=== PATIENT | male | born 1960 | race African-American/Black ===

== ENCOUNTER 2016-12-06 19:07 | Emergency (ER) | payer OTHER ==
[~2016-12-06] VITALS: Ht 185.4 cm; Wt 108.9 kg
[~2016-12-06 19:07] MED LIST: ACETAMINOPHEN-1 EAC1 ORAL
[2016-12-06] MEDS ORDERED: UNOBMED (19:31)
[2016-12-06 19:40] VITALS: BP 136/87
[2016-12-06] MEDS ORDERED: Tetanus/Diptheria/Pertussis Vaccine 0.5ml Syr IM ONE (19:45)
--- NOTE | 2016-12-06 19:58 | Emergency Room Report ---
History of Present Illness General Chief Complaint: Laceration Source: Patient Present Illness HPI 56-year-old male presents emergency department for being scratched by patient on the right forearm at work earlier today. Patient denies erythema denies pain denies bleeding at this time. Patient states he does not know when his last tetanus vaccination was. He cleaned the wounds prior to arrival. Patient states that injury occurred while working. He denies taking blood thinning medications. Denies numbness tingling or loss of sensation or gross motor movements of the extremities, incontinence of bowel or bladder. Denies CP, Palpitations, LOC, AMS, dizziness, Changes in Vision, Sensation, paresthesias, or a sudden severe headache. Allergies: Uncoded Allergies: IBUPROFEN (Allergy, Unknown, 08/24/15) Patient History Past Medical History: see triage record Past Surgical History: none Reviewed Nursing Documentation: PMH: Agreed, PSxH: Agreed Nursing Documentation-PMH Hx Hypertension: Yes Review of Systems All Other Systems: negative except mentioned in HPI Physical Exam Vital Signs Date Time Temp Pulse Resp B/P Pulse Ox O2 Delivery O2 Flow Rate FiO2 12/06/16 19:27 98.4 65 14 136/87 96 Room Air Sp02 EP Interpretation: reviewed, normal General Appearance: no apparent distress, alert, GCS 15, non-toxic Head: normocephalic, atraumatic Eyes: bilateral eye PERRL, bilateral eye normal inspection ENT: hearing grossly normal, normal pharynx, no angioedema, normal voice Neck: full range of motion, supple/symm/no masses Respiratory: lungs clear, normal breath sounds, speaking full sentences Cardiovascular #1: regular rate, rhythm Musculoskeletal: back normal, gait/station normal, normal range of motion, non- tender Neurologic: alert, oriented x3, responsive, motor strength/tone normal, sensory intact, speech normal Psychiatric: judgement/insight normal, memory normal, mood/affect normal Skin: normal color, no rash, warm/dry, well hydrated, abrasions - 3 separate superficial abrasions/lacerations linear less than 0.3 cm each , no surrounding erythema. Lymphatic: no adenopathy Medical Decision Making PA Attestation Dr. Tovar is my supervising Physician whom patient management has been discussed with. Diagnostic Impression: Primary Impression: Laceration ER Course 56-year-old male presents emergency department for being scratched by patient on the right forearm at work earlier today. Patient denies erythema denies pain denies bleeding at this time. Patient states he does not know when his last tetanus vaccination was. He cleaned the wounds prior to arrival. Patient states that injury occurred while working. He denies taking blood thinning medications. Denies numbness tingling or loss of sensation or gross motor movements of the extremities, incontinence of bowel or bladder. Denies CP, Palpitations, LOC, AMS, dizziness, Changes in Vision, Sensation, paresthesias, or a sudden severe headache. Ddx considered but are not limited to laceration, tendon injury, cellulitis, amputation Vital signs: are WNL, pt. is afebrile H&PE are most consistent with: 3 separate superficial abrasions/lacerations linear less than 0.3 cm each , no surrounding erythema. ORDERS: none required at this time, the diagnosis is clinical ED INTERVENTIONS: -Tetanus vaccine was administered as pt. vaccination status was unknown. - The wound was copiously irrigated with normal saline, no FB was found noted , wounds are superficial -Bacitracin and sterile dressing is applied. d/w pt to keep an eye out for signs of infection, to return with worsening or new symptoms such as tenderness, increased redness, d/c, or bleeding, otherwise stable to follow up with PCP. DISCHARGE: At this time pt. is stable for d/c to home. Will provide printed patient care instructions, and any necessary prescriptions. Care plan and follow up instructions have been discussed with the patient prior to discharge. Last Vital Signs Date Time Temp Pulse Resp B/P Pulse Ox O2 Delivery O2 Flow Rate FiO2 12/06/16 19:27 98.4 65 14 136/87 96 Room Air Disposition: HOME, SELF-CARE Condition: Stable Scripts Bacitracin/Polymyxin B Sulfate (BACITRACIN-POLYMYXIN OINTMENT) 28.35 Gm Oint...g. 1 APPLIC TP BID, #28.3 GM Prov: Berna Kulkarni 12/06/16 Patient Instructions: Abrasion, Rlll-ez-[id number], Nonsutured Laceration Care Additional Instructions: Take medications as directed. Follow up with a Primary Care Provider in 3-5 days, even if your symptoms have resolved. --Please review list of primary care clinics, if you do not already have a primary care provider Return sooner to ED if new symptoms occur, or current symptoms become worse. - Please note that this Emergency Department Report was dictated using [employer] maintenance technology software, occasionally this can lead to erroneous entry secondary to interpretation by the dictation equipment. Berna Kulkarni. Dec 06, 2016 19:58
[2016-12-06] MEDS ORDERED: Bacitracin Oint UD TOPIC ONE (20:00)
[2016-12-06] MEDS ORDERED: BACITRACIN-P28.35 GM TP (20:00)
[2016-12-06 20:20] VITALS: BP 136/87
== END 2016-12-06 20:20 | disposition home or self-care (01) ==
LOC: EMR 20:12
DX: S51.811A Laceration without foreign body of right forearm, initial encounter (principal); I10 Essential (primary) hypertension; Z88.6 Allergy status to analgesic agent; W50.4XXA Accidental scratch by another person, initial encounter; Y92.099 Unspecified place in other non-institutional residence as the place of occurrence of the external cause; Y99.0 Civilian activity done for income or pay
CPT/HCPCS: 96372; 99284